=== PATIENT | female | born 1990 | race Caucasian/White ===

== ENCOUNTER 2016-09-22 13:28 | Emergency (ER) | payer OTHER ==
[2016-09-22 13:45] VITALS: RESP 18
[2016-09-22] MEDS ORDERED: SODIUM CHLORIDE 0.9% 1,000 ML IV ONE (13:56)
--- NOTE | 2016-09-22 14:05 | ED ---
Female Urogenital HPI - General Chief complaint: Vaginal Bleeding Stated complaint: Female Source: patient, RN notes reviewed Mode of arrival: ambulatory Limitations: no limitations - History of Present Illness Initial comments: Evon Faulkner is a female who presents to the ED for evaluation of vaginal bleeding. Evon reports that last month she had a positive test, approximately one week later she developed vaginal bleeding. She followed up with her primary care physician who obtained blood for a serum hCG level. She was called back and advised that it appears she had been but was likely miscarrying. Evon reports that for the past 3 weeks she has had continuous vaginal bleeding. She describes as dark clots, constant but worse with any heavy lifting. 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 She reports she is experiencing pelvic cramping which she would describe as similar in character to contractions or labor pains. 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 She gave in May 2015, this is her first since that time. Complaint: vaginal bleeding -: week(s) Quality: cramping Improves with: none Worsens with: none Patient : No - Related Data Home Medications Medication Instructions Recorded Confirmed metroNIDAZOLE [Flagyl] 250 mg PO TID PRN 10/20/15 09/22/16 Allergies Allergy/AdvReac Type Severity Reaction Status Date / Time ketorolac tromethamine Allergy Rash/Hives Verified 09/22/16 13:46 [From Toradol] metoclopramide HCl Allergy Unknown Verified 09/22/16 13:46 [From Reglan] morphine Allergy Rash/Hives Verified 09/22/16 13:46 nitrofurantoin Allergy Rash/Hives Verified 09/22/16 13:46 [From Macrobid] nitrofurantoin Allergy Rash/Hives Verified 09/22/16 13:46 macrocrystalline [From Macrobid] sulfamethoxazole AdvReac Unknown Verified 09/22/16 13:46 [From Bactrim] trimethoprim [From Bactrim] AdvReac Unknown Verified 09/22/16 13:46 venom-honey bee AdvReac Unknown Verified 09/22/16 13:46 [bee venom (honey bee)] Review of Systems ROS Statement: Those systems with pertinent positive or pertinent negative responses have been documented in the HPI. ROS Other: All systems not noted in ROS Statement are negative. Constitutional: Denies: fever, chills Eyes: Denies: vision change Respiratory: Denies: cough Cardiovascular: Reports: palpitations. Denies: chest pain Endocrine: Reports: fatigue Gastrointestinal: Denies: nausea, vomiting Genitourinary: Reports: abnormal menses. Denies: urgency, dysuria, frequency, hematuria, discharge Musculoskeletal: Denies: back pain Skin: Denies: rash, change in color Neurological: Reports: headache Past Medical History Past Medical History: No Reported History, Syncope Additional Past Medical History / Comment(s): ovarian cyst, fluid in kidneys when last time History of Any Multi-Drug Resistant Organisms: None Reported Past Surgical History: Section, Tonsillectomy Additional Past Surgical History / Comment(s): stents in kidneysn Past Psychological History: Anxiety, Bipolar Smoking Status: Former smoker Past Alcohol Use History: None Reported Past Drug Use History: None Reported General Exam Limitations: no limitations General appearance: alert, in no apparent distress Head exam: Present: atraumatic, normocephalic, normal inspection Eye exam: Present: normal appearance, PERRL, EOMI, other (no conjunctival pallor ). Absent: scleral icterus, conjunctival injection, periorbital swelling ENT exam: Present: mucous membranes moist Respiratory exam: Present: normal lung sounds bilaterally. Absent: respiratory distress, wheezes, rales, rhonchi, stridor Cardiovascular Exam: Present: regular rate, normal rhythm, normal heart sounds. Absent: systolic murmur, diastolic murmur, rubs, gallop, clicks GI/Abdominal exam: Present: soft, normal bowel sounds. Absent: distended, tenderness, guarding, rebound, rigid Rectal exam: Present: deferred External exam: Present: normal external exam. Absent: erythema, swelling, lesions, lacerations, ecchymosis Speculum exam: Present: vaginal bleeding (dark blood in vaginal vault, os closed , no active bleeding, no bleeding with valsalva or cough, no CMT, no friability or erythema of cervix) Extremities exam: Present: normal inspection Neurological exam: Present: alert, oriented X3 Skin exam: Present: warm, dry, intact, normal color. Absent: rash, pallor Course Vital Signs 09/22/16 13:41 Temperature 98.7 F Pulse Rate 79 Respiratory 18 Rate Blood Pressure 113/59 O2 Sat by Pulse 100 Oximetry - Reevaluation(s) Reevaluation #1: Patient complaining of nausea, Zofran ordered. Pelvic exam performed with dark blood and vaginal vault. Closed cervical os. No active bleeding noted. 09/22/16 14:59 Reevaluation #2: Patient re-evaluated, laying comfortably in bed reading a magazine. US results were reviewed and discussed with the patient, patient reports feeling better, comfortable with discharge home with plan to follow up with PCP on Saturday. 09/22/16 15:51 Medical Decision Making - Lab Data Result diagrams: 09/22/16 14:35 Lab Results 09/22/16 09/22/16 Range/Units 14:35 14:35 WBC 5.9 (3.8-10.6) k/uL RBC 4.56 (3.80-5.40) m/uL Hgb 14.5 (11.4-16.0) gm/dL Hct 41.1 (34.0-46.0) % MCV 90.2 (80.0-100.0) fL MCH 31.8 (25.0-35.0) pg MCHC 35.3 (31.0-37.0) g/dL RDW 12.3 (11.5-15.5) % Plt Count 220 (150-450) k/uL Neutrophils % 51 % Lymphocytes % 32 % Monocytes % 3 % Eosinophils % 11 % Basophils % 1 % Neutrophils # 3.0 (1.3-7.7) k/uL Lymphocytes # 1.9 (1.0-4.8) k/uL Monocytes # 0.2 (0-1.0) k/uL Eosinophils # 0.7 (0-0.7) k/uL Basophils # 0.1 (0-0.2) k/uL HCG, Quant <2.4 mIU/mL Disposition Clinical Impression: Vaginal bleeding Disposition: HOME SELF-CARE Condition: Good Instructions: Menstruation (ED) Referrals: Alexia Olivera MD [Primary Care Provider] - 1-2 days
[2016-09-22] MEDS ORDERED: ONDANSETRON 4 MG/2 ML VIAL IVP STA (14:29)
[2016-09-22] MEDS ORDERED: HYDROmorphone 1 MG/ML 1 ML SYRINGE IVP STA (15:01)
[2016-09-22 15:12] LABS: Basophils # (A) 0.1 k/uL (0-0.2); Basophils % (A) 1 %; CH 31.3; CHCM 34.8; Eosinophils # (A) 0.7 k/uL (0-0.7); Eosinophils % (A) 11 %; HCT 41.1 % (34.0-46.0); HDW 2.91; HGB 14.5 gm/dL (11.4-16.0); Luc # (Auto) 0.13; Luc % (Auto) 2; Lymphocytes # (A) 1.9 k/uL (1.0-4.8); Lymphocytes % (A) 32 %; MCH 31.8 pg (25.0-35.0); MCHC 35.3 g/dL (31.0-37.0); MCV 90.2 fL (80.0-100.0); Mean Platelet Volume 6.9; Monocytes # (A) 0.2 k/uL (0-1.0); Monocytes % (A) 3 %; Neutrophils % (A) 51 %; RBC 4.56 m/uL (3.80-5.40); RDW 12.3 % (11.5-15.5); WBC 5.9 k/uL (3.8-10.6)
--- NOTE | 2016-09-22 15:32 | US ---
EXAMINATION TYPE: US transvaginal DATE OF EXAM: 09/22/2016 COMPARISON: 09/09/2015 CLINICAL HISTORY: Pain. TECHNIQUE: Transvaginal (TV) Date of LMP: Patient had miscarriage 3 weeks prior, still bleeding EXAM MEASUREMENTS: Uterus: 8.9 x 4.0 x 4.8 cm Endometrial Stripe: 0.3 cm Right Ovary: obscured by overlying bowel gas Left Ovary: 1.7 x 1.5 x 2.0 cm 1. Uterus: Anteverted wnl 2. Endometrium: wnl 3. Right Ovary: Obscured by overlying bowel gas 4. Left Ovary: partially obscured by overlying bowel gas Spectral, color and waveform doppler imaging shows good arterial and venous flow within the left ov kenyatta; there is no evidence for ovarian torsion on left. 5. Bilateral Adnexa: wnl 6. Posterior cul-de-sac: wnl IMPRESSION: Negative transvaginal pelvic sonogram. No evidence of ovarian torsion. No adverse change compared to old exam. Normal endometrium.
[2016-09-22 16:12] VITALS: BP 103/58; PULSE 51; TEMP 98
== END 2016-09-22 16:12 | disposition home or self-care (01) ==
LOC: EC 13:28
DX: N93.9 Abnormal uterine and vaginal bleeding, unspecified (principal); R10.2 Pelvic and perineal pain; Z87.891 Personal history of nicotine dependence; Z88.5 Allergy status to narcotic agent; Z88.6 Allergy status to analgesic agent; Z88.8 Allergy status to other drugs, medicaments and biological substances; Z88.2 Allergy status to sulfonamides; Z91.030 Bee allergy status
CPT/HCPCS: 36415; 86900; 86901; 85025; 84702; 93976; 76830; 99284; 96374; 96375; 96361 ×2; J2405; J1170

== ENCOUNTER 2017-07-28 22:44 | Emergency (ER) | payer OTHER ==
[2017-07-28] MEDS ORDERED: RX INFO: IV CONTRAST WAS GIVEN 1 EACH MISC MISCELLANE PRN (22:54)
[2017-07-28 23:12] LABS: Basophils % (A) 0 %; Eosinophils # (A) 0.7 k/uL (0-0.7); Eosinophils % (A) 11 %; HCT 41.6 % (34.0-46.0); HGB 13.9 gm/dL (11.4-16.0); Lymphocytes # (A) 2.3 k/uL (1.0-4.8); Lymphocytes % (A) 36 %; MCH 29.2 pg (25.0-35.0); MCHC 33.5 g/dL (31.0-37.0); MCV 87.2 fL (80.0-100.0); Mean Platelet Volume 7.5; Monocytes # (A) 0.3 k/uL (0-1.0); Monocytes % (A) 5 %; Neutrophils # (A) 2.9 k/uL (1.3-7.7); Neutrophils % (A) 45 %; Platelet Count 224 k/uL (150-450); RBC 4.77 m/uL (3.80-5.40); RDW 13.9 % (11.5-15.5); WBC 6.4 k/uL (3.8-10.6)
[2017-07-28 23:18] LABS: ALT 23 U/L (9-52); AST 27 U/L (14-36); Albumin 4.2 g/dL (3.5-5.0); Alkaline Phosphatase 95 U/L (38-126); Anion Gap 16 mmol/L; Blood Urea Nitrogen 5 mg/dL (7-17); Carbon Dioxide 23 mmol/L (22-30); Chloride 109 mmol/L (98-107); Glucose 87 mg/dL (74-99); Potassium 3.9 mmol/L (3.5-5.1); Sodium 148 mmol/L (137-145); Total Bilirubin 0.6 mg/dL (0.2-1.3); Total Protein 6.5 g/dL (6.3-8.2)
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
[2017-07-28 23:25] LABS: Alcohol 155 mg/dL
[2017-07-28 23:26] LABS: Partial Thromboplastin Time 22.1 sec (22.0-30.0)
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
[2017-07-29] MEDS ORDERED: HYDROcodone/APAP 5-325MG 1 EACH TAB PO STA (00:31)
[2017-07-29 00:34] LABS: Amphetamine Screen,Urine Not Detected (NotDetected); Barbiturate Screen,Urine Not Detected (NotDetected); Benzodiazepines Screen,Urine Not Detected (NotDetected); Cocaine Screen,Urine Not Detected (NotDetected); Methadone Screen, Urine Detected (NotDetected); Opiate Screen,Urine Detected (NotDetected); Oxycodone Screen, Urine Not Detected (NotDetected); Phencyclidine Screen,Urine Not Detected (NotDetected); Tricyclic Antidepressant,Urine Not Detected (NotDetected); Urn Cannabinoid Scrn Detected (NotDetected)
[2017-07-29 00:36] LABS: Appearance,Urine Clear (Clear); Bilirubin,Urine Negative (Negative); Blood,Urine Trace (Negative); Color,Urine Colorless; Glucose,Urine (UA) Negative (Negative); Ketones,Urine Negative (Negative); Leukocyte Esterase,Urine Negative (Negative); Nitrite,Urine Negative (Negative); PH, Urine 7.5 (5.0-8.0); Protein,Urine Negative (Negative); RBC,Urine <1 /hpf (0-5); Specific Gravity,Urine 1.017 (1.001-1.035); Squamous Epithelial Cell,Urine 2 /hpf (0-4); Urobilinogen,Urine <2.0 mg/dL (<2.0); WBC,Urine 2 /hpf (0-5)
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
[2017-07-29 01:04] VITALS: BP 113/75; PULSE 90; RESP 18; TEMP 98.6
== END 2017-07-29 01:05 | disposition home or self-care (01) ==
LOC: EC 22:44
DX: N83.209 Unspecified ovarian cyst, unspecified side (principal); H55.00 Unspecified nystagmus; R00.0 Tachycardia, unspecified; F10.129 Alcohol abuse with intoxication, unspecified; M54.9 Dorsalgia, unspecified; F17.200 Nicotine dependence, unspecified, uncomplicated; Z88.1 Allergy status to other antibiotic agents; Z88.5 Allergy status to narcotic agent; Z88.6 Allergy status to analgesic agent; Z88.8 Allergy status to other drugs, medicaments and biological substances; Z91.030 Bee allergy status; V47.5XXA Car driver injured in collision with fixed or stationary object in traffic accident, initial encounter; Y92.410 Unspecified street and highway as the place of occurrence of the external cause
CPT/HCPCS: 36415; 93005; 86900; 86901; 80053; 84484; 85025; 85610; 85730; 86850; 81001; 80306; 80320; 72170; 71045; 72125; 70450; 74177; 99285; Q9967

== ENCOUNTER 2017-09-07 01:26 | Observation (INO) | payer OTHER ==
[2017-09-07] MEDS ORDERED: SODIUM CHLORIDE 0.9% 1,000 ML IV STA (02:34)
[2017-09-07] MEDS ORDERED: ACETAMINOPHEN IV (For NPO) 1,000 MG in EMPTY BAG 1 BAG IVPB ONE (02:35)
[2017-09-07] MEDS ORDERED: diphenhydrAMINE 50 MG/ML 1 ML VIAL IVP STA (02:35)
[2017-09-07] MEDS ORDERED: ONDANSETRON 4 MG/2 ML VIAL IVP STA (02:36)
[2017-09-07 02:50] LABS: Appearance,Urine Clear (Clear); Basophils % (A) 0 %; Bilirubin,Urine Negative (Negative); Blood,Urine Negative (Negative); Color,Urine Light Yellow; Eosinophils # (A) 0.2 k/uL (0-0.7); Eosinophils % (A) 4 %; Glucose,Urine (UA) Negative (Negative); HCT 41.3 % (34.0-46.0); HGB 13.8 gm/dL (11.4-16.0); Ketones,Urine Negative (Negative); Leukocyte Esterase,Urine Negative (Negative); Lymphocytes # (A) 2.3 k/uL (1.0-4.8); Lymphocytes % (A) 44 %; MCH 29.4 pg (25.0-35.0); MCHC 33.6 g/dL (31.0-37.0); MCV 87.6 fL (80.0-100.0); Mean Platelet Volume 6.9; Monocytes # (A) 0.3 k/uL (0-1.0); Monocytes % (A) 5 %; Neutrophils # (A) 2.3 k/uL (1.3-7.7); Neutrophils % (A) 45 %; Nitrite,Urine Negative (Negative); PH, Urine 7.5 (5.0-8.0); Platelet Count 231 k/uL (150-450); Protein,Urine Negative (Negative); RBC 4.71 m/uL (3.80-5.40); Specific Gravity,Urine 1.011 (1.001-1.035); Urobilinogen,Urine <2.0 mg/dL (<2.0); WBC 5.2 k/uL (3.8-10.6)
[2017-09-07 03:00] LABS: ALT 36 U/L (9-52); AST 25 U/L (14-36); Albumin 4.2 g/dL (3.5-5.0); Alkaline Phosphatase 65 U/L (38-126); Anion Gap 12 mmol/L; Blood Urea Nitrogen 13 mg/dL (7-17); Calcium 9.4 mg/dL (8.4-10.2); Carbon Dioxide 25 mmol/L (22-30); Chloride 106 mmol/L (98-107); Glucose 77 mg/dL (74-99); Potassium 4.4 mmol/L (3.5-5.1); Sodium 143 mmol/L (137-145); Total Protein 6.3 g/dL (6.3-8.2)
[2017-09-07 03:04] LABS: Amphetamine Screen,Urine Not Detected (NotDetected); Barbiturate Screen,Urine Not Detected (NotDetected); Benzodiazepines Screen,Urine Not Detected (NotDetected); Cocaine Screen,Urine Not Detected (NotDetected); Methadone Screen, Urine Not Detected (NotDetected); Opiate Screen,Urine Not Detected (NotDetected); Oxycodone Screen, Urine Not Detected (NotDetected); Phencyclidine Screen,Urine Not Detected (NotDetected); Tricyclic Antidepressant,Urine Not Detected (NotDetected); Urn Cannabinoid Scrn Detected (NotDetected)
--- NOTE | 2017-09-07 03:13 | CT ---
EXAMINATION TYPE: CT brain wo con DATE OF EXAM: 09/07/2017 COMPARISON: NONE HISTORY: seizure, dizziness CT DLP: 1041.50 mGycm. Automated Exposure Control for Dose Reduction was Utilized. TECHNIQUE: CT scan of the head is performed without contrast. FINDINGS: Ventricles and sulci appear normal. There is no mass effect nor midline shift. There is n o sign of intracranial hemorrhage. Calvarium appears intact. IMPRESSION: Normal head CT scan.
[2017-09-07] MEDS ORDERED: levETIRAcetam IV 500 MG in SODIUM CHLORIDE 0.9% 100 ML IVPB STA (03:57)
[2017-09-07] MEDS ORDERED: LORazepam 2 MG/ML INJ IV STA (03:58)
[2017-09-07] MEDS ORDERED: NALOXONE 0.4 MG/ML 1 ML VIAL IV PRN (04:07)
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
[2017-09-07] MEDS ORDERED: LORazepam 2 MG/ML INJ IV PRN (04:17)
[2017-09-07] MEDS: SODIUM CHLORIDE 0.9% 1,000 ML IV SCH (04:20)
[2017-09-07] MEDS ORDERED: SODIUM CHLORIDE 0.9% 1,000 ML IV ONE (05:13)
[2017-09-07] MEDS ORDERED: ONDANSETRON 4 MG TAB PO PRN (08:05)
[2017-09-07] MEDS ORDERED: methylPREDNISolone SOD SUCCI 125 MG/2 ML VIAL IVPB SCH (08:15)
--- NOTE | 2017-09-07 10:02 | MR ---
EXAMINATION TYPE: MR brain wo con DATE OF EXAM: 09/07/2017 COMPARISON: CT brain dated 09/07/2017 HISTORY: Headaches, Dizzy, N&V TECHNIQUE: Multiplanar, multisequence images of the brain and brainstem is performed without intravenous contras t. FINDINGS: Evaluation is limited by patient motion. Diffusion weighted images demonstrate no evidence of a recent infarct or other diffusion abnormality. There is no extra-axial fluid collection. Linear oriented left pontine T2/FLAIR hyperintense signal abnormality does not persist on coronal images an d is favored to represent artifact from patient motion due to its linear nature and nonreproducibilit y. The ventricular system and cisternal spaces are normal in size and appearance. The brain volume is age appropriate. Midline structures demonstrate normal morphology. The craniocervical junction appears within normal limits. The dural venous sinuses appear patent. The visualized sinuses demonstrate mild mucosal thic kening within the ethmoid and maxillary sinuses. The globes are intact. No cerebellar pontine angle mass. The medial temporal lobes and hippocampi are symmetric in signal an d morphology. IMPRESSION: Limited exam due to patient motion. There is no convincing evidence of acute intracranial process. No restricted diffusion to suggest infarct. No vasogenic edema. Ill-defined nonspecific lef t pontine T2/FLAIR hyperintensity is linear and not reproduced on coronal images favored to represent motion artifact. Repeat exam with sedation and intravenous contrast could be performed if there is f urther clinical concern.
[2017-09-07] MEDS: levETIRAcetam 500 MG TAB PO SCH ×2 (10:03→21:23)
[2017-09-07] MEDS: ACETAMINOPHEN TAB 325 MG TAB PO PRN ×3 (10:04→22:49)
[2017-09-07] MEDS: methylPREDNISolone SOD SUCCI 250 MG in SODIUM CHLORIDE 0.9% 100 ML IVPB SCH ×2 (10:04→16:42)
--- NOTE | 2017-09-07 11:33 | CT ---
EXAMINATION TYPE: CT cervical spine wo con DATE OF EXAM: 09/07/2017 COMPARISON: 07/28/2017 HISTORY: Neck pain, migraine, new onset seizure CT DLP: 313.4 mGycm. Automated Exposure Control for Dose Reduction was Utilized. TECHNIQUE: CT scan of the cervical spine is obtained without contrast, axial images are obtained, sa gittal and coronal reformatted images are also reviewed. FINDINGS: Cervical spine is visualized in its entirety from C1 through upper thoracic levels, demonst rates satisfactory alignment without evidence of acute fracture or dislocation. Prevertebral soft ti ssue appears within normal limits. The C1-C2 articulation is within normal limits on the coronal nick ges. Review of axial images shows no significant spinal canal stenosis or neural foraminal narrowing at an y cervical level. Thyroid gland is felt within normal limits. Visualized lung apices are clear and de monstrate very minimal bilateral dependent atelectasis and subcentimeter focal pleural thickening als o likely on the basis of atelectasis. There is a focal reversal usual cervical lordosis from C2 throu gh C6. IMPRESSION: There is no acute fracture or dislocation evident in the cervical spine. Focal reversal of the usual cervical lordosis from C2 through C6. This may relate to patient positioning, muscular s prain, or muscular spasm.
[2017-09-07] MEDS: diphenhydrAMINE 50 MG/ML 1 ML VIAL IVP PRN ×2 (11:39→16:13)
[2017-09-07 12:03] LABS: Glucose,Whole Blood 96 mg/dL (75-99)
[2017-09-07] MEDS: INSULIN ASPART 100 UNIT/ML 1 ML 10 ML VIAL SQ SCH ×3 (12:03→21:22)
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
[2017-09-07 17:18] LABS: Glucose,Whole Blood 136 mg/dL (75-99)
--- NOTE | 2017-09-07 17:28 | HP ---
HISTORY AND PHYSICAL CHIEF COMPLAINTS: Chief complaints are seizure disorder and headache. HISTORY OF PRESENT ILLNESS: This 26-year-old woman with a past medical history of multiple medical problems including ovarian cyst, history of section, tonsillectomy, anxiety, bipolar, being followed by Dr. Olivera in the outpatient setting apparently had a head injury recently. The not clear at this time, but the patient also had multiple seizures and patient also had severe migrainous type headache and patient came to [facility] and admitted for further evaluation treatment. The MRI scan was also done did not show any acute abnormality. The patient is being admitted for further evaluation and treatment. After receiving the Solu-Medrol, the patient had some allergies which responded to Benadryl. There is no history of any fever, rigors or chill. No history any hematochezia or melena. No history of weakness at this time. PAST MEDICAL HISTORY: History of recent head injury, history of syncope, anxiety, bipolar. MEDICATIONS: Medications prior to admission home medications are Flagyl 250 mg t.i.d. p.r.n. ALLERGIES: KETOROLAC, METOCLOPRAMIDE, MORPHINE, NITROFURANTOIN, BACTRIM and HONEY BEE VENOM. FAMILY HISTORY: No history of heart disease or strokes in the family. SOCIAL HISTORY: History of alcohol, THC and smoking. REVIEW OF SYSTEMS: ENT: As mentioned earlier. CARDIOVASCULAR SYSTEM: No angina or palpitations. RESPIRATORY SYSTEM: No cough. GI: No nausea. : No dysuria. NERVOUS SYSTEM: As mentioned earlier. ALLERGY/IMMUNOLOGY: No asthma or hayfever. MUSCULOSKELETAL: As mentioned earlier. HEMATOLOGY/ONCOLOGY: No history of anemia. ENDOCRINE: No history of diabetes or hypothyroidism. CONSTITUTIONAL: As mentioned earlier. DERMATOLOGY: Negative. RHEUMATOLOGY: Negative. PSYCHIATRY: As mentioned earlier. PHYSICAL EXAMINATION: The patient is alert and oriented x3. Pulse is 88, blood pressure 105/54, respirations 16, temperature 97.1, pulse ox 98% on room air. HEENT: Conjunctivae normal. Oral mucosa moist. Neck is no jugular venous distention. No carotid bruit. No lymph node enlargement. CARDIOVASCULAR: S1 and S2 muffled. RESPIRATORY: Breath sounds diminished at the bases. No rhonchi, no crackles. ABDOMEN: Soft, nontender. No mass palpable. LEGS: No edema, no swelling. NERVOUS SYSTEM: Higher functions as mentioned earlier. Pupils are normal. Eye movements fully . Moves all 4 limbs. No focal motor or sensory deficits. LYMPHATICS: No lymphadenopathy of the neck, axillae or groin. SKIN: No ulcer, rash or bleeding. LABS: Labs are at this time show CBC within normal limits. CMP within normal limits. THC is positive. ASSESSMENT: 1. Generalized tonic-clonic seizures. 2. History of recent head injury. 3. History of syncope. 4. History of nephrolithiasis. 5. Anxiety, bipolar. 6. History of nicotine dependence. 7. History of THC. RECOMMENDATIONS AND DISCUSSION: In this 26-year-old woman who presented with multiple complex medical issues, will monitor the patient closely, continue the current medications, continue symptomatic treatment. I recommend continue with current medications. Keppra has been initiated. Neurology consultation. EEG has been ordered. Neuro checks, seizure precautions. I would recommend repeat labs and continue to monitor. Also, check a magnesium as well. Further recommendations to follow. MMODL / IJN: [id number] / PALMER
[2017-09-07 17:40] LABS: Hemoglobin A1C 4.4 % (4.0-6.0)
[2017-09-07 20:28] LABS: Glucose,Whole Blood 121 mg/dL (75-99)
[2017-09-08] MEDS: diphenhydrAMINE 50 MG/ML 1 ML VIAL IVP PRN (00:09)
[2017-09-08] MEDS: methylPREDNISolone SOD SUCCI 250 MG in SODIUM CHLORIDE 0.9% 100 ML IVPB SCH (00:58)
[2017-09-08] MEDS: SODIUM CHLORIDE 0.9% 1,000 ML IV SCH (02:55)
[2017-09-08 07:05] LABS: Glucose,Whole Blood 120 mg/dL (75-99)
[2017-09-08] MEDS: INSULIN ASPART 100 UNIT/ML 1 ML 10 ML VIAL SQ SCH ×2 (07:19→11:44)
[2017-09-08] MEDS: levETIRAcetam 500 MG TAB PO SCH (07:37)
[2017-09-08] MEDS: ACETAMINOPHEN TAB 325 MG TAB PO PRN (07:38)
[2017-09-08 08:05] VITALS: BP 94/58; PULSE 62; RESP 16; TEMP 97.9
[2017-09-08] MEDS ORDERED: methylPREDNISolone SOD SUCCI 250 MG in SODIUM CHLORIDE 0.9% 100 ML IVPB STA (08:23)
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
[2017-09-08 08:35] LABS: Basophils % (A) 0 %; Eosinophils % (A) 0 %; HCT 41.4 % (34.0-46.0); Lymphocytes # (A) 0.6 k/uL (1.0-4.8); Lymphocytes % (A) 7 %; MCH 29.8 pg (25.0-35.0); MCHC 33.7 g/dL (31.0-37.0); MCV 88.4 fL (80.0-100.0); Mean Platelet Volume 6.8; Monocytes # (A) 0.1 k/uL (0-1.0); Monocytes % (A) 2 %; Neutrophils # (A) 8.4 k/uL (1.3-7.7); Neutrophils % (A) 92 %; Platelet Count 222 k/uL (150-450); RBC 4.69 m/uL (3.80-5.40); WBC 9.2 k/uL (3.8-10.6)
[2017-09-08 09:00] LABS: Anion Gap 13 mmol/L; Blood Urea Nitrogen 9 mg/dL (7-17); Calcium 9.5 mg/dL (8.4-10.2); Carbon Dioxide 23 mmol/L (22-30); Chloride 108 mmol/L (98-107); Glucose 128 mg/dL (74-99); Magnesium 1.7 mg/dL (1.6-2.3); Potassium 3.8 mmol/L (3.5-5.1); Sodium 144 mmol/L (137-145)
[2017-09-08 11:31] LABS: Glucose,Whole Blood 162 mg/dL (75-99)
--- NOTE | 2017-09-08 13:25 | DS ---
DISCHARGE SUMMARY FINAL DIAGNOSES: 1. Generalized tonic-clonic seizures. 2. History of recent head injury and possibly postconcussion syndrome. 3. History of syncope. 4. History of nephrolithiasis. 5. History of bipolar. 6. History of nicotine dependence. 7. History of THC. DISCHARGE DISPOSITION: The patient will be discharged in stable condition with guarded prognosis. HISTORY OF PRESENT ILLNESS: This 26-year-old woman with a past medical history of multiple medical problems being followed by Dr. Olivera in the outpatient setting, admitted with generalized tonic-clonic seizures. The patient treated with Keppra. Patient improved significantly. Patient also had history of recent head injury. MRI scan did not show any abnormality. Neurovascular workup is also negative. The patient improved significantly. On exam, vitals are stable. Cardiovascular: S1, S2. Abdomen: Soft. Nervous System: No focal deficits. DISCHARGE ADVICE AND MEDICATIONS: 1. Diet is cardiac. 2. Activity is limited until follow up. 3. Follow up with Dr. Olivera in 2-3 days. 4. Follow with Dr. Rodriguez in 1-2 weeks. 5. Seizure precautions. 6. No driving for 6 months per [place] regulation. MEDICATIONS: 1. Tylenol 650 q.6h p.r.n. 2. Avoid THC. 3. Butalbital caffeine 1 tablet q.i.d. p.r.n. 4. Keppra 500 mg p.o. b.i.d. Once again the patient is discharged in stable condition with guarded prognosis. MMODL / IJN: [id number] /
--- NOTE | 2017-09-09 15:51 | EEG ---
ELECTROENCEPHALOGRAM REPORT DATE OF SERVICE: 09/07/2017 REASON FOR TESTING: Seizure. DESCRIPTION OF THE PROCEDURE: This EEG was performed using a 21-channel digital electroencephalograph, following international 10-20 system. DESCRIPTION OF THE RECORDING: From the beginning of the tracing and with the patient's eyes closed, the background rhythm was mostly consisting of 8 Hz to 9 Hz alpha frequency in the posterior occipital leads. No obvious asymmetry is seen. Photic stimulation was performed, but it was discontinued after 8 Hz due to patient discomfort. Hyperventilation was not performed. Occasional lead and movement artifacts are seen. The patient does reach stage II of sleep during the tracing and occasional sleep spindles are seen. No epileptiform discharges were seen. INTERPRETATION: This asleep and awake EEG can be considered within normal limits. There was no asymmetry seen. No epileptiform discharges were noticed. The absence of epileptiform discharges does not rule out the diagnosis of epilepsy; therefore clinical correlation is recommended. MMRAYMOND / NEETUN: [id number] /
== END 2017-09-08 13:08 | disposition home or self-care (01) ==
LOC: EC 01:26 → 4MS4W 04:17
PROVIDERS: ADMIT Hospitalist; ATTEND Hospitalist
DX: G40.309 Generalized idiopathic epilepsy and epileptic syndromes, not intractable, without status epilepticus (principal); M54.81 Occipital neuralgia; F17.200 Nicotine dependence, unspecified, uncomplicated; F41.9 Anxiety disorder, unspecified; G43.919 Migraine, unspecified, intractable, without status migrainosus; Z79.899 Other long term (current) drug therapy; Z87.442 Personal history of urinary calculi; Z98.891 History of uterine scar from previous surgery
CPT/HCPCS: 96366; 96365; 96375; 99285; 36415; 95819; 93005; 80053; 80048; 80177; 83735; 85025 ×2; 81003; 81025; 80306; 83036; 72125; 70450; 70551; G0378 ×2; J1200 ×2; J2930 ×2; J2405; J1953; J0131

== ENCOUNTER → 2017-10-15 | Outpatient (CLI) | payer OTHER ==
--- NOTE | 2017-10-15 14:48 | US ---
EXAMINATION TYPE: US transvaginal DATE OF EXAM: 10/15/2017 COMPARISON: CT abdomen pelvis July 28, 2017. Pelvic ultrasound September 22, 2016 CLINICAL HISTORY: Pelvic Pain R10.2. History of ovarian cysts TECHNIQUE: Transvaginal (TV Date of LMP: 09/30/2017 EXAM MEASUREMENTS: Uterus: 9.4 x 4.5 x 6.4 cm Endometrial Stripe: 1.1 cm Right Ovary: 2.5 x 1.8 x 3.1 cm Left Ovary: 3.8 x 2.1 x 2.5 cm 1. Uterus: Anteverted wnl 2. Endometrium: wnl 3. Right Ovary: wnl 4. Left Ovary: wnl 5. Bilateral Adnexa: wnl 6. Posterior cul-de-sac: no free fluid Normal peripheral follicles are scattered throughout both ovaries. No suspicious adnexal lesions are seen on today's study. IMPRESSION: No adnexal masses currently. Unremarkable study.
== END | disposition home or self-care (01) ==
LOC: RADUSWWP 14:11
PROVIDERS: ATTEND Family Medicine
DX: R10.2 Pelvic and perineal pain (principal)
CPT/HCPCS: 76830

== ENCOUNTER 2018-06-01 10:29 | Emergency (ER) | payer OTHER ==
[2018-06-01 10:38] VITALS: BP 103/61; PULSE 87; RESP 18; TEMP 98.2
[2018-06-01 12:22] LABS: Basophils % (A) 1 %; Eosinophils # (A) 0.3 k/uL (0-0.7); Eosinophils % (A) 6 %; HCT 43.3 % (34.0-46.0); HGB 14.5 gm/dL (11.4-16.0); Lymphocytes # (A) 1.5 k/uL (1.0-4.8); Lymphocytes % (A) 26 %; MCH 30.1 pg (25.0-35.0); MCHC 33.5 g/dL (31.0-37.0); MCV 89.7 fL (80.0-100.0); Mean Platelet Volume 6.7; Monocytes # (A) 0.3 k/uL (0-1.0); Monocytes % (A) 5 %; Neutrophils # (A) 3.5 k/uL (1.3-7.7); Neutrophils % (A) 61 %; Platelet Count 190 k/uL (150-450); RBC 4.83 m/uL (3.80-5.40); RDW 12.5 % (11.5-15.5); WBC 5.7 k/uL (3.8-10.6)
--- NOTE | 2018-06-01 12:26 | ED ---
Female Urogenital HPI - General Chief complaint: Vaginal Bleeding Stated complaint: AND BLEEDING Time Seen by Provider: 06/01/18 11:03 Source: patient, RN notes reviewed, old records reviewed Mode of arrival: ambulatory Limitations: no limitations - History of Present Illness Initial comments: 27-year-old female, G6, P2 presents to the emergency department today with vaginal bleeding. Since had 3 previous miscarriages. She reports last menstrual period was beginning of April. Patient reports that her SUPERINTENDENT TESTS is Dr. Kruse. Patient has had no recent intercourse Patient denies dysuria hematuria. Patient states that she started having heavier bleeding this afternoon. She complains of pelvic cramping. Patient reports she has had multipel positive tests. She also complains of some back pain. - Related Data Previous Rx's Medication Instructions Recorded Acetaminophen Tab [Tylenol] 650 mg PO Q6HR PRN tab 09/08/17 Butalb/APAP/Caff 50-325-40Mg 1 tab PO Q8HR PRN 5 Days #15 09/08/17 [Fioricet 50-325-40] tablet MDD 3 levETIRAcetam [Keppra] 500 mg PO BID #60 tab 09/08/17 Allergies Allergy/AdvReac Type Severity Reaction Status Date / Time ketorolac tromethamine Allergy Rash/Hives Verified 06/01/18 10:34 [From Toradol] metoclopramide HCl Allergy Unknown Verified 06/01/18 10:34 [From Reglan] nitrofurantoin Allergy Rash/Hives Verified 06/01/18 10:34 [From Macrobid] nitrofurantoin Allergy Rash/Hives Verified 06/01/18 10:34 macrocrystalline [From Macrobid] sulfamethoxazole AdvReac Unknown Verified 06/01/18 10:34 [From Bactrim] trimethoprim [From Bactrim] AdvReac Unknown Verified 06/01/18 10:34 venom-honey bee AdvReac Unknown Verified 06/01/18 10:34 [bee venom (honey bee)] Review of Systems ROS Statement: Those systems with pertinent positive or pertinent negative responses have been documented in the HPI. ROS Other: All systems not noted in ROS Statement are negative. Past Medical History Past Medical History: No Reported History, Syncope Additional Past Medical History / Comment(s): ovarian cyst, fluid in kidneys when last time, kidney stones History of Any Multi-Drug Resistant Organisms: None Reported Past Surgical History: Section, Tonsillectomy Additional Past Surgical History / Comment(s): stents in kidneys Past Anesthesia/Blood Transfusion Reactions: No Reported Reaction Smoking Status: Former smoker Past Alcohol Use History: None Reported Past Drug Use History: None Reported General Exam - General Exam Comments Initial Comments: Pleasant 27-year-old female. Alert and oriented 3. No significant distress. Limitations: no limitations General appearance: alert, in no apparent distress Head exam: Present: atraumatic, normocephalic, normal inspection Eye exam: Present: normal appearance, PERRL, EOMI. Absent: scleral icterus, conjunctival injection, periorbital swelling ENT exam: Present: normal exam, mucous membranes moist Neck exam: Present: normal inspection. Absent: tenderness, meningismus, lymphadenopathy Respiratory exam: Present: normal lung sounds bilaterally. Absent: respiratory distress, wheezes, rales, rhonchi, stridor Cardiovascular Exam: Present: regular rate, normal rhythm, normal heart sounds. Absent: systolic murmur, diastolic murmur, rubs, gallop, clicks GI/Abdominal exam: Present: soft, normal bowel sounds. Absent: distended, tenderness, guarding, rebound, rigid Extremities exam: Present: normal inspection, full ROM, normal capillary refill. Absent: tenderness, pedal edema, joint swelling, calf tenderness Back exam: Present: normal inspection Neurological exam: Present: alert Psychiatric exam: Present: normal affect, normal mood Course Vital Signs 06/01/18 10:35 Temperature 98.2 F Pulse Rate 87 Respiratory 18 Rate Blood Pressure 103/61 O2 Sat by Pulse 98 Oximetry Medical Decision Making - Medical Decision Making 27-year-old female presents restaurant today with complaints of vaginal bleeding times one day. She reports she's had a few positive test and is approximately 16 weeks . Patient's urine hCG is negative at this time hCG Quant is 0. Patient ultrasound shows no evidence of IUP. Patient was upright. Discussed likely this started bleeding is the starting of her normal menstrual cycle. Patient was offered pelvic exam and then later refused. 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 Patient agrees treatment plan. Discussed Motrin Tylenol for pain for menstrual cramping - Lab Data Result diagrams: 06/01/18 12:07 06/01/18 12:07 Lab Results 06/01/18 06/01/18 06/01/18 Range/Units 12:07 12:07 12:07 WBC 5.7 (3.8-10.6) k/uL RBC 4.83 (3.80-5.40) m/uL Hgb 14.5 (11.4-16.0) gm/dL Hct 43.3 (34.0-46.0) % MCV 89.7 (80.0-100.0) fL MCH 30.1 (25.0-35.0) pg MCHC 33.5 (31.0-37.0) g/dL RDW 12.5 (11.5-15.5) % Plt Count 190 (150-450) k/uL Neutrophils % 61 % Lymphocytes % 26 % Monocytes % 5 % Eosinophils % 6 % Basophils % 1 % Neutrophils # 3.5 (1.3-7.7) k/uL Lymphocytes # 1.5 (1.0-4.8) k/uL Monocytes # 0.3 (0-1.0) k/uL Eosinophils # 0.3 (0-0.7) k/uL Basophils # 0.0 (0-0.2) k/uL Sodium 141 (137-145) mmol/L Potassium 4.4 (3.5-5.1) mmol/L Chloride 110 H (98-107) mmol/L Carbon Dioxide 25 (22-30) mmol/L Anion Gap 6 mmol/L BUN 14 (7-17) mg/dL Creatinine 0.63 (0.52-1.04) mg/dL Est GFR (CKD-EPI)AfAm >90 (>60 ml/min/1.73 sqM) Est GFR (CKD-EPI)NonAf >90 (>60 ml/min/1.73 sqM) Glucose 93 (74-99) mg/dL Calcium 9.0 (8.4-10.2) mg/dL HCG, Quant <2.4 mIU/mL Urine Color Urine Appearance (Clear) Urine pH (5.0-8.0) Ur Specific [place] (1.001-1.035) Urine Protein (Negative) Urine Glucose (UA) (Negative) Urine Ketones (Negative) Urine Blood (Negative) Urine Nitrite (Negative) Urine Bilirubin (Negative) Urine Urobilinogen (<2.0) mg/dL Ur Leukocyte Esterase (Negative) Urine RBC (0-5) /hpf Urine WBC (0-5) /hpf Ur Squamous Epith Cells (0-4) /hpf Urine Mucus (None) /hpf Urine HCG, Qual (Not Detectd) Blood Type O Negative Blood Type Recheck No 06/01/18 06/01/18 Range/Units 12:09 12:09 WBC (3.8-10.6) k/uL RBC (3.80-5.40) m/uL Hgb (11.4-16.0) gm/dL Hct (34.0-46.0) % MCV (80.0-100.0) fL MCH (25.0-35.0) pg MCHC (31.0-37.0) g/dL RDW (11.5-15.5) % Plt Count (150-450) k/uL Neutrophils % % Lymphocytes % % Monocytes % % Eosinophils % % Basophils % % Neutrophils # (1.3-7.7) k/uL Lymphocytes # (1.0-4.8) k/uL Monocytes # (0-1.0) k/uL Eosinophils # (0-0.7) k/uL Basophils # (0-0.2) k/uL Sodium (137-145) mmol/L Potassium (3.5-5.1) mmol/L Chloride (98-107) mmol/L Carbon Dioxide (22-30) mmol/L Anion Gap mmol/L BUN (7-17) mg/dL Creatinine (0.52-1.04) mg/dL Est GFR (CKD-EPI)AfAm (>60 ml/min/1.73 sqM) Est GFR (CKD-EPI)NonAf (>60 ml/min/1.73 sqM) Glucose (74-99) mg/dL Calcium (8.4-10.2) mg/dL HCG, Quant mIU/mL Urine Color Light Yellow Urine Appearance Clear (Clear) Urine pH 6.0 (5.0-8.0) Ur Specific [place] 1.015 (1.001-1.035) Urine Protein Negative (Negative) Urine Glucose (UA) Negative (Negative) Urine Ketones Negative (Negative) Urine Blood Moderate H (Negative) Urine Nitrite Negative (Negative) Urine Bilirubin Negative (Negative) Urine Urobilinogen <2.0 (<2.0) mg/dL Ur Leukocyte Esterase Negative (Negative) Urine RBC <1 (0-5) /hpf Urine WBC 1 (0-5) /hpf Ur Squamous Epith Cells <1 (0-4) /hpf Urine Mucus Rare H (None) /hpf Urine HCG, Qual Not Detected (Not Detectd) Blood Type Blood Type Recheck - Radiology Data Radiology results: report reviewed Ultrasound shows a small 3 mm cystic structure at the scar could represent a small scar niche. In the setting of a positive test given lack of visualized IUP elsewhere eschar ectopic is not excluded at this time. Correlate with hCG levels. Appropriate follow-up recommended. Other considerations include early to early to visualize IUP nonvisualized ectopic or failed . The IVP is not visualized. Disposition Clinical Impression: Menses, irregular Disposition: HOME SELF-CARE Condition: Good Instructions (If sedation given, give patient instructions): Menstruation (ED) Additional Instructions: Patient advised to take Motrin Tylenol for pain. Follow-up with your PCP. Return to emergency department if any alarming signs or symptoms occur. Is patient prescribed a controlled substance at d/c from ED?: No Referrals: Alexia Olivera MD [Primary Care Provider] - 1-2 days Time of Disposition: 13:35
[2018-06-01 12:32] LABS: Anion Gap 6 mmol/L; Blood Urea Nitrogen 14 mg/dL (7-17); Carbon Dioxide 25 mmol/L (22-30); Chloride 110 mmol/L (98-107); Glucose 93 mg/dL (74-99); Potassium 4.4 mmol/L (3.5-5.1); Sodium 141 mmol/L (137-145)
[2018-06-01 12:48] LABS: HCG,Quantitative Serum <2.4 mIU/mL
[2018-06-01 13:05] LABS: Appearance,Urine Clear (Clear); Bilirubin,Urine Negative (Negative); Blood,Urine Moderate (Negative); Color,Urine Light Yellow; Glucose,Urine (UA) Negative (Negative); Ketones,Urine Negative (Negative); Leukocyte Esterase,Urine Negative (Negative); Mucus,Urine Rare /hpf; Nitrite,Urine Negative (Negative); Protein,Urine Negative (Negative); RBC,Urine <1 /hpf (0-5); Specific Gravity,Urine 1.015 (1.001-1.035); Squamous Epithelial Cell,Urine <1 /hpf (0-4); Urobilinogen,Urine <2.0 mg/dL (<2.0)
--- NOTE | 2018-06-01 13:07 | US ---
EXAMINATION TYPE: Ultrasound OB <= 14 weeks transvaginal DATE OF EXAM: 06/01/2018 12:32 PM COMPARISON: NONE CLINICAL HISTORY: 27-year-old female Pain. Cramping and bleeding today, irregular cycles, , 2 c-s ections EXAM PERFORMED: OBTA/OBTV FINDINGS: EXAM MEASUREMENTS: GESTATIONAL AGE / DATING Physician Established: Not yet established Dates by LMP: LMP unknown Dates by First Scan: No previous this is first scan Dates by Current Scan for: No IUP seen at this time MATERNAL ANATOMY Uterus: 7.5 x 5.0 x 4.4cm. Small 3 mm cyst at the scar. Right Ovary: 2.4 x 2.9 x 2.5cm Left Ovary: 3.7 x 2.8 x 2.3cm Post CDS / Adnexa: wnl Presence of free fluid: no Presence of corpus luteal cyst: not seen Presence of subchorionic bleed: no GESTATION / SURVEY No IUP seen at this time Endometrium = 0.9cm Date of LMP: unknown Beta HcG (if available): pending IMPRESSION: 1. Small 3 mm cystic structure at the scar could represent a small scar niche. In the setting of a positive test, given the lack of a visualized intrauterine elsew here, a scar ectopic is not excluded at this time. Correlate with serial beta hCG levels. Appropriate follow-up recommended. Other considerations include too early to visualize intrauterine , n onvisualized ectopic, and failed . 2. No visualized
== END 2018-06-01 13:45 | disposition home or self-care (01) ==
LOC: EC 10:29
DX: N92.6 Irregular menstruation, unspecified (principal); Z87.891 Personal history of nicotine dependence; Z88.8 Allergy status to other drugs, medicaments and biological substances; Z88.6 Allergy status to analgesic agent; Z88.1 Allergy status to other antibiotic agents; Z88.2 Allergy status to sulfonamides; Z91.030 Bee allergy status
CPT/HCPCS: 36415; 76801; 76817; 80048; 81001; 81025; 84702; 85025; 86900; 86901; 99284

== ENCOUNTER → 2020-09-05 | Outpatient (CLI) | payer OTHER ==
--- NOTE | 2020-09-06 13:49 | US ---
EXAMINATION TYPE: US OB anatomy transabd DATE OF EXAM: 09/05/2020 COMPARISON: NONE HISTORY: Z36.0 screening for chromosomal anomalies anatomy patient returning in 2 weeks for LVOT head measurements somewhat limited due to baby positioning. TECHNIQUE: Transabdominal (TA) EXAM MEASUREMENTS: GESTATIONAL AGE / DATING Physician Established: (18 weeks/5 days) EDC: 02/01/2021 Dates by LMP: (18 weeks/5 days) EDC: 02/01/2021 Dates by First Scan: No previous this is first scan Dates by Current Scan for: (19 weeks/0 days) EDC: 01/30/2021 SURVEY IUP: Single PLACENTA: Posterior PREVIA: No previa CATHIE: 11.5 cm Normal CERVICAL LENGTH (transabdominal: norm > 3.0cm): 3.0 cm BIOMETRY PRESENTATION: Variable LIE: Variable BPD: 4.39 cm 19 weeks / 2 days HC: 16.15 cm 19 weeks / 0 days AC: 13.75 cm 19 weeks / 2 days FL: 2.72 cm 19 weeks / 0 days ESTIMATED WEIGHT IN GRAMS: 257 grams WEIGHT PERCENTAGE BASED ON ESTABLISHED DATE: 49% % HC/AC: 1.20 Normal FL/AC: 20% HEART RATE: 149 bpm RHYTHM: Normal ANATOMY SEEN (within normal limits): * Lateral Vent (< 1 cm) .7 cm * Cisterna Magna (< 1.1 cm) .5 cm * Nuchal Fold (< 0.6 cm) cm * Cerebellum (varies with age) 1.8cm cm Choroid Plexus (bilateral) Midline Falx Cavus Septi Pellucidi Four Chamber Heart Outflow tracts: LVOT/RVOT Stomach Situs Nose / Lips Diaphragm Kidneys (bilateral) Bladder Cord Insert Three Vessel Cord Longitudinal Spine Transverse Spine Arms (bilateral) Legs (bilateral) ANATOMY NOT SEEN: LVOT IMPRESSION: 1. Single intrauterine gestation measuring 19 weeks 0 days based on the ultrasound measurements. Card iac activity measures 149. 2. Left ventricular outflow tract is current exam. Follow-up recommended
== END | disposition home or self-care (01) ==
LOC: RADUSWWP 14:04
PROVIDERS: ATTEND Obstetrics & Gynecology
DX: Z36.89 Encounter for other specified antenatal screening (principal); Z3A.19 19 weeks gestation of pregnancy
CPT/HCPCS: 76811

== ENCOUNTER 2020-11-07 12:19 | Outpatient (CLI) | payer OTHER ==
[2020-11-07 12:59] LABS: Appearance,Urine Clear (Clear); Bilirubin,Urine Negative (Negative); Blood,Urine Negative (Negative); Color,Urine Light Yellow; Glucose,Urine (UA) Negative (Negative); Ketones,Urine Trace (Negative); Leukocyte Esterase,Urine Negative (Negative); Nitrite,Urine Negative (Negative); Protein,Urine Negative (Negative); Specific Gravity,Urine 1.004 (1.001-1.035); Urobilinogen,Urine <2.0 mg/dL (<2.0)
[2020-11-07] MEDS ORDERED: DEXTROSE 5%-LACTATED RINGERS 1,000 ML IV SCH (13:30)
[2020-11-07 15:28] VITALS: BP 119/74; PULSE 77; RESP 17; TEMP 98.6
--- NOTE | 2020-11-09 08:04 | P.MSEPDOC ---
Presenting Problems - Arrival Data Date of Arrival on Unit: 11/07/20 Time of Arrival on Unit: 12:19 Mode of Transport: Wheelchair - Complaint OB-Reason for Admission/Chief Complaint: Pain Comment: pt brought up via w/c by ER for right lower back pain that wraps around to the front, rates pain 5/10, Medical History - Information : 5 Para: 2 Term: 2 : 0 Abortions: Spontaneous or Elective: 2 Number of Living Children: 2 - Gestational Age Gestational Age by SUN (wks/days): 27 Weeks and 5 Days - History Complications: Prior Review of Systems - Review of Systems Constitutional: No problems Breast: No problems ENT: No problems Cardiovascular: No problems Respiratory: No problems Gastrointestinal: No problems Genitourinary: No problems Musculoskeletal: No problems Neurological: No problems Skin: No problems Vital Signs - Temperature Temperature: 98.6 F Temperature Source: Temporal Artery Scan - Pulse Right Brachial Pulse Rate: 77 Pulse Assessment Method: Automatic Cuff - Respirations Respiratory Rate: 17 Oxygen Delivery Method: Room Air O2 Sat by Pulse Oximetry: 97 - Blood Pressure Right Arm Blood Pressure: 119/74 Blood Pressure Mean: 89 Blood Pressure Source: Automatic Cuff Medical Screen Scoring - Cervical Exam Dilation (cm): 0 Effacement (%): 0 Station: -4 Membranes: Intact - Uterine Contractions Frequency From (mins): 0 Frequency To (mins): 0 - Assessment - Baby A Baseline FHR: 135 Heart Rate - NICHD Category: Category I (Normal) Physician Notification - Physician Notified Physician Notified Date: 11/07/20 Physician Notified Time: 12:30 Physician: Arleen Bedoya New Order Received: Yes - Notification Comment Comment: pt given D5LR 1 liter, cervix closed/thick/high, no contractions traced or palpated, abd soft to palpation, no pain over or near previous section scar, pt is to call and make appt with her OB for today or tomorrow Maternal Triage Index - Stat/Priority 1 Stat Priority 1: No - Urgent/Priority 2 Urgent Priority 2: Yes Provider Notified: Arleen Bedoya Provider Notified Time: 12:30 Criteria Met for Priority 2: pt's ga is 27 5/7, c/o right lower back pain that wraps around to the front, rates pain 5/10, pt was previous c/s Disposition - Disposition OB Disposition: Physician follow up in office, Triage, Discharge to home, Written follow up instructions reviewed Discharge Date: 11/07/20 Discharge Time: 14:58 I agree with the RN Medical Screening Exam: Yes Case reviewed; plan agreed upon as documented in EMR&OBIX.: Yes Comments: Patient was neither seen nor examined by me Diagnosis: RELATED CONDITIONS, UNSPECIFIED, THIRD TRIMESTER
== END 2020-11-07 14:58 | disposition home or self-care (01) ==
LOC: FBPOP 12:19
PROVIDERS: ATTEND Obstetrics & Gynecology
DX: O26.892 Other specified pregnancy related conditions, second trimester (principal); M54.5 Low back pain; Z3A.27 27 weeks gestation of pregnancy
CPT/HCPCS: 96365; 81003; G0463; 99214

== ENCOUNTER 2021-06-02 01:56 | Emergency (ER) | payer OTHER ==
[2021-06-02 02:08] VITALS: RESP 18; TEMP 97.9
[2021-06-02] MEDS ORDERED: GLUCAGON 1 MG/ML VIAL IVP STA (02:42)
[2021-06-02 03:25] LABS: Basophils % (A) 1 %; Eosinophils # (A) 0.6 k/uL (0-0.7); Eosinophils % (A) 11 %; HCT 44.2 % (34.0-46.0); Lymphocytes # (A) 1.6 k/uL (1.0-4.8); Lymphocytes % (A) 30 %; MCH 29.5 pg (25.0-35.0); MCHC 33.8 g/dL (31.0-37.0); MCV 87.2 fL (80.0-100.0); Mean Platelet Volume 7.6; Monocytes # (A) 0.3 k/uL (0-1.0); Monocytes % (A) 6 %; Neutrophils # (A) 2.7 k/uL (1.3-7.7); Neutrophils % (A) 50 %; Platelet Count 198 k/uL (150-450); RBC 5.07 m/uL (3.80-5.40); RDW 13.8 % (11.5-15.5); WBC 5.3 k/uL (3.8-10.6)
[2021-06-02 03:40] LABS: African American GFR (CKD) >90 (>60 ml/min/1.73 sqM); Anion Gap 8 mmol/L; Blood Urea Nitrogen 9 mg/dL (7-17); Carbon Dioxide 25 mmol/L (22-30); Chloride 106 mmol/L (98-107); Glucose 93 mg/dL (74-99); Non-African American GFR(CKD) >90 (>60 ml/min/1.73 sqM); Potassium 3.8 mmol/L (3.5-5.1); Sodium 139 mmol/L (137-145)
--- NOTE | 2021-06-02 04:14 | ED ---
General Adult HPI - General Chief complaint: Skin/Abscess/Foreign Body Stated complaint: Food Stuck in throat Time Seen by Provider: 06/02/21 02:23 Source: patient Mode of arrival: ambulatory - History of Present Illness Initial comments: This patient is 30-year-old woman who presents to have evaluation for what she suspects is food caught in the esophagus. Patient states that just before 6 PM tonight she had been eating steak and then felt like a piece that lodged. She indicates the sternal notch area. She states that she has not been able to drink water. When she attempts to drink water or swallows saliva she has regurgitation shortly after. No difficulty with breathing or speech. -: hour(s) Location: chest Radiation: non-radiation Quality: aching Consistency: constant Improves with: none Worsens with: none Treatments Prior to Arrival: none - Related Data Home Medications Medication Instructions Recorded Confirmed Pnv No.95/Ferrous Fum/Folic AC 1 tab PO DAILY 11/07/20 11/07/20 [ Multivitamin Tablet] Allergies Allergy/AdvReac Type Severity Reaction Status Date / Time ketorolac tromethamine Allergy Rash/Hives Verified 06/02/21 02:08 [From Toradol] metoclopramide HCl Allergy Unknown Verified 06/02/21 02:08 [From Reglan] nitrofurantoin Allergy Rash/Hives Verified 06/02/21 02:08 [From Macrobid] nitrofurantoin Allergy Rash/Hives Verified 06/02/21 02:08 macrocrystalline [From Macrobid] sulfamethoxazole AdvReac Unknown Verified 06/02/21 02:08 [From Bactrim] trimethoprim [From Bactrim] AdvReac Unknown Verified 06/02/21 02:08 venom-honey bee AdvReac Unknown Verified 06/02/21 02:08 [bee venom (honey bee)] Review of Systems ROS Statement: Those systems with pertinent positive or pertinent negative responses have been documented in the HPI. ROS Other: All systems not noted in ROS Statement are negative. Constitutional: Denies: fever, chills ENT: Reports: throat pain Respiratory: Denies: cough, dyspnea Cardiovascular: Reports: as per HPI, chest pain. Denies: palpitations, edema, syncope Gastrointestinal: Denies: abdominal pain, vomiting, diarrhea Genitourinary: Denies: dysuria, hematuria Musculoskeletal: Denies: back pain Skin: Denies: rash Neurological: Denies: headache, weakness Past Medical History Past Medical History: No Reported History, Syncope Additional Past Medical History / Comment(s): ovarian cyst, fluid in kidneys when last time, kidney stones, History of Any Multi-Drug Resistant Organisms: None Reported Past Surgical History: Section Additional Past Surgical History / Comment(s): stents in kidneys, Past Anesthesia/Blood Transfusion Reactions: No Reported Reaction Past Psychological History: Anxiety, Bipolar Smoking Status: Former smoker Past Alcohol Use History: None Reported Past Drug Use History: Marijuana General Exam General appearance: alert, in no apparent distress Head exam: Present: atraumatic, normocephalic Eye exam: Present: normal appearance. Absent: scleral icterus, conjunctival injection ENT exam: Present: normal oropharynx Neck exam: Present: normal inspection, full ROM. Absent: tenderness, meningismus Respiratory exam: Present: normal lung sounds bilaterally. Absent: respiratory distress, wheezes, rales, rhonchi, stridor Cardiovascular Exam: Present: regular rate, normal rhythm, normal heart sounds. Absent: systolic murmur, diastolic murmur, rubs, gallop GI/Abdominal exam: Present: soft. Absent: distended, tenderness, guarding, rebound, rigid, mass Extremities exam: Present: normal inspection, normal capillary refill. Absent: pedal edema, calf tenderness Back exam: Present: normal inspection. Absent: CVA tenderness (R), CVA tenderness (L) Neurological exam: Present: alert Skin exam: Present: warm, dry, intact, normal color. Absent: rash Course Vital Signs 06/02/21 06/02/21 02:00 04:26 Temperature 97.9 F Pulse Rate 61 78 Respiratory 18 18 Rate Blood Pressure 111/64 124/68 O2 Sat by Pulse 95 98 Oximetry Medical Decision Making - Medical Decision Making Patient is 30-year-old woman presenting with symptoms consistent with food impaction. The patient is administered glucagon. Following that she noticed that the sensation seems decreased. She was then able to tolerate drinking fluids. - Lab Data Result diagrams: 06/02/21 03:11 06/02/21 03:11 Lab Results 06/02/21 06/02/21 Range/Units 03:11 03:11 WBC 5.3 (3.8-10.6) k/uL RBC 5.07 (3.80-5.40) m/uL Hgb 15.0 (11.4-16.0) gm/dL Hct 44.2 (34.0-46.0) % MCV 87.2 (80.0-100.0) fL MCH 29.5 (25.0-35.0) pg MCHC 33.8 (31.0-37.0) g/dL RDW 13.8 (11.5-15.5) % Plt Count 198 (150-450) k/uL MPV 7.6 Neutrophils % 50 % Lymphocytes % 30 % Monocytes % 6 % Eosinophils % 11 % Basophils % 1 % Neutrophils # 2.7 (1.3-7.7) k/uL Lymphocytes # 1.6 (1.0-4.8) k/uL Monocytes # 0.3 (0-1.0) k/uL Eosinophils # 0.6 (0-0.7) k/uL Basophils # 0.0 (0-0.2) k/uL Sodium 139 (137-145) mmol/L Potassium 3.8 (3.5-5.1) mmol/L Chloride 106 (98-107) mmol/L Carbon Dioxide 25 (22-30) mmol/L Anion Gap 8 mmol/L BUN 9 (7-17) mg/dL Creatinine 0.68 (0.52-1.04) mg/dL Est GFR (CKD-EPI)AfAm >90 (>60 ml/min/1.73 sqM) Est GFR (CKD-EPI)NonAf >90 (>60 ml/min/1.73 sqM) Glucose 93 (74-99) mg/dL Calcium 9.0 (8.4-10.2) mg/dL Disposition Clinical Impression: Food impaction of esophagus Disposition: HOME SELF-CARE Condition: Good Instructions (If sedation given, give patient instructions): Esophageal Foreign Body (ED) Is patient prescribed a controlled substance at d/c from ED?: No Referrals: None,Stated [Primary Care Provider] - 1-2 days Marika Sal MD [STAFF PHYSICIAN] - 1-2 days
[2021-06-02 04:27] VITALS: BP 124/68; PULSE 78
== END 2021-06-02 04:26 | disposition home or self-care (01) ==
LOC: EC 01:56
DX: T18.128A Food in esophagus causing other injury, initial encounter (principal); F12.90 Cannabis use, unspecified, uncomplicated; Z87.891 Personal history of nicotine dependence; X58.XXXA Exposure to other specified factors, initial encounter
CPT/HCPCS: 36415; 80048; 85025; 99283; 96374; J1610